=== PATIENT | male | born 1965 | race Caucasian/White ===

== ENCOUNTER 2020-02-04 15:55 | Inpatient (IN) ==
[2020-02-04] MEDS ORDERED: cefTRIAXone SODIUM 2,000 MG/70 ML BAG IV STA (16:08)
--- NOTE | 2020-02-04 16:12 | Emergency Department Note ---
Impression & Plan Meningitis, Candelario's palsy, Sixth cranial nerve palsy, Acute Lyme disease ED Provider Note NAME: HARDEEP MAHER JR AGE: 54 SEX: M : 1965 ARRIVES VIA: Walk-In INFORMANT: Patient ED PROVIDER(S): Gigi Figueredo DO CHIEF COMPLAINT: Meningitis HPI: Patient is a 54-year-old male who presents the ER referred in by neurology. Patient was seen here in the ER and had CTs as well as CT angios and MRI performed yesterday. His symptoms started about 3 weeks ago. He noticed some double vision. In the past 24 hours he had a right-sided facial droop. That is why he initially presented to the ER. Over these past 3 weeks he has been having worsening headaches. Lyme titers were positive yesterday. Only tick bite he can think of was back in October [place] He is an avid outdoorsman. He denies any chest pain and shortness of breath. No belly pain, nausea, vomiting or diarrhea. He admits to diffuse myalgias and arthralgias. Headache is currently a 0 out of 10. He had a little LP performed today and had over 200 white cells and was referred in for admission. ROS: See above HPI for pertinent positives & negatives. A total of 10 systems reviewed and were otherwise negative. PAST MEDICAL HISTORY:See Below PAST SURGICAL HISTORY:See Below FAMILY HISTORY:See Below SOCIAL HISTORY:See Below HOME MEDICATIONS:See Below ALLERGIES:See Below VITALS:See Below PHYSICAL EXAMINATION: GENERAL: Sitting up in bed, alert, well appearing, well nourished, no distress, non-toxic EYE EXAM: normal conjunctiva. Full range of motion of left eye. Right eye unable to gaze laterally. OROPHARYNX: no exudate, no erythema, lips, buccal mucosa, and tongue normal and mucous membranes are moist NECK: supple, no nuchal rigidity, no adenopathy, non-tender LUNGS: Clear to auscultation. Normal chest wall mechanics HEART: no murmurs, S1 normal and S2 normal ABDOMEN: abdomen soft, non-tender, normo-active bowel sounds, no masses, no rebound or guarding. BACK: Back is symmetrical on inspection and there is no deformity, no midline tenderness, no CVA tenderness. SKIN: no rashes and no bruising UPPER EXTREMITIES: upper extremities are grossly normal. LOWER EXTREMITIES: No pitting edema. NEURO EXAM: Normal sensorium, right-sided facial droop, unable to gaze rightward with right eye, intact, normal speech, no weakness of arms, no weakness of legs. No drift. Gross sensation intact. MEDICAL DECISION MAKING: Patient is a 54-year-old male who had extensive work-up performed yesterday including MRIs and CT angios. He was discharged and followed up with neurology today and had a lumbar puncture which showed more than 200 white cells. He was referred in for meningitis. Per neurology's note patient was given 2 g of IV Rocephin. He was updated bedside. He was discussed with the hospitalist and was admitted for likely Lyme meningitis as his Lyme titers are positive. Labs show a mild leukopenia at 3.8. No significant anemia. BMP, LFTs, bilirubin was unremarkable. Triage Nursing notes reviewed. Prior medical records reviewed Vital Signs: reviewed and remarkable for no significant abnormalities Differential diagnosis: Differential diagnosis includes etiologies such as sepsis, UTI, pneumonia, metabolic, electrolyte abnormalities, cardiac sources, intracerebral event, toxicologic, neurological, as well as others were entertained. ER treatment provided: See below Diagnostics interpreted by me: ECG: none Cardiac Monitoring: An order was placed for continuous cardiac monitoring. The monitor shows a rate of 80 with sinus rhythm. Laboratory studies: As stated above and show below. Imaging studies: See below Consultation(s): none ED COURSE: Procedures: none Critical Care: None Past Med/Surg History Medical History (Updated 02/04/20 @ 22:18 by Gigi Figueredo DO) Acute back pain with sciatica Acute Lyme disease Gout Hypercholesteremia Hypertension Surgical History (Updated 02/04/20 @ 18:33 by Christa Dan PA-C) History of colonoscopy Vasectomy planned Family History Father Diabetes Lung disease Mother Coronary heart disease Social History Smoking Status: Never smoker Hx Alcohol Use: Yes Hx Substance Use: No Preferred Language: Peruvian Communication Ability: Effective Director Of Perioperative Services Required: No Beliefs That Will Affect Care: None Current Living Situation: Family Current Living Situation Comment: Home with and daughter Other Information That Helps Us Care for You: No Feels Safe at Home: Yes Safety Concerns: Feels Safe At This Time Assistive Devices: Glasses Allergies Allergies Allergy/AdvReac Type Severity Reaction Status Date / Time No Known Allergies Allergy Verified 02/04/20 17:28 Home Meds Home Medications Medication Instructions Recorded Confirmed allopurinol 200 mg PO HS 02/03/20 02/04/20 atorvastatin 20 mg PO QPM 02/03/20 02/04/20 doxycycline hyclate 100 mg PO DAILY 02/03/20 02/04/20 fluticasone propionate 2 spray INTRANASAL QPM 02/03/20 02/04/20 montelukast 10 mg PO HS 02/03/20 02/04/20 Previous Rx's Medication Instructions Recorded gabapentin 300 mg capsule 300 mg PO BID #60 cap 02/04/20 lisinopril 5 mg tablet 5 mg PO DAILY #30 tab 02/04/20 Results & Data (ED) Vital Signs Vital Signs - 24 hr 02/04/20 15:57 02/04/20 16:00 02/04/20 16:05 Temperature 37 C Temperature Source Oral Pulse Rate 85 84 87 Pulse Rate from SpO2 Sensor Respiratory Rate 17 18 24 Blood Pressure 137/89 137/89 Blood Pressure Mean 97 105 Blood Pressure Position Sitting Pulse Oximetry 98 Oxygen Delivery Method Room Air Sepsis Recent Fever Within 48 Hours Yes Sepsis New/Unexplained Change in Mental Status No Sepsis Action Taken by Nursing No Action Required 02/04/20 16:12 02/04/20 16:30 02/04/20 16:57 Temperature Temperature Source Pulse Rate 91 H 79 Pulse Rate from SpO2 Sensor Respiratory Rate 22 23 Blood Pressure 150/82 H Blood Pressure Mean 89 Blood Pressure Position Pulse Oximetry 97 Oxygen Delivery Method Room Air Sepsis Recent Fever Within 48 Hours Sepsis New/Unexplained Change in Mental Status Sepsis Action Taken by Nursing 02/04/20 17:00 02/04/20 17:30 Temperature Temperature Source Pulse Rate 83 87 Pulse Rate from SpO2 Sensor 83 87 Respiratory Rate 16 24 Blood Pressure 140/83 124/66 Blood Pressure Mean 90 74 Blood Pressure Position Pulse Oximetry 95 95 Oxygen Delivery Method Sepsis Recent Fever Within 48 Hours Sepsis New/Unexplained Change in Mental Status Sepsis Action Taken by Nursing Laboratory Data Result diagrams: 02/04/20 16:40 02/04/20 16:40 Lab Results 02/04/20 02/04/20 Range/Units 16:40 16:40 WBC 3.80 L (4.8-10.8) K/uL RBC 4.30 L (4.7-6.1) M/uL Hgb 13.8 L (14.0-18.0) g/dL Hct 40.4 L (42-52) % MCV 94.0 (80-100) fL MCH 32.1 (25-34) pg MCHC 34.2 (32-36) g/dL RDW Std Deviation 41.9 (36.4-46.3) fL RDW Coeff of Millie 12.4 (11.5-14.5) % Plt Count 223 (130-400) K/uL MPV 10.7 H (7.4-10.4) fL Immature Gran % (Auto) 0.3 % Neut % (Auto) 44.5 % Lymph % (Auto) 43.7 % Dickenson % (Auto) 8.4 % Eos % (Auto) 2.6 % Baso % (Auto) 0.5 % Neut # (Auto) 1.69 (1.4-6.5) K/uL Lymph # (Auto) 1.66 (1.2-3.4) K/uL Dickenson # (Auto) 0.32 (0.11-0.59) K/uL Eos # (Auto) 0.10 (0-0.5) K/uL Baso # (Auto) 0.02 (0-0.2) K/uL Immature Gran # (Auto) 0.01 (0.00-0.02) K/uL Sodium 138 (136-145) mmol/L Potassium 3.7 (3.5-5.1) mmol/L Chloride 103 (98-107) mmol/L Carbon Dioxide 29 (21-32) mmol/L Anion Gap 5.0 (3-11) BUN 15 (7-18) mg/dl Creatinine 0.84 (0.6-1.4) mg/dl Est Cr Clr Drug Dosing Not Reportable Est GFR ( Amer) 115.9 Est GFR (Non-Af Amer) 100.0 BUN/Creatinine Ratio 17.6 (10-20) Glucose 124 H (70-99) mg/dl Calcium 9.6 (8.5-10.1) mg/dl Total Bilirubin 0.5 (0.2-1) mg/dl AST 12 L (15-37) U/L ALT 22 (12-78) U/L Alkaline Phosphatase 47 (45-117) U/L Total Protein 7.3 (6.4-8.2) gm/dl Albumin 3.8 (3.4-5.0) gm/dl Globulin 3.5 (2.5-4.0) gm/dl Albumin/Globulin Ratio 1.1 (0.9-2) Administered Medications Allopurinol (Allopurinol 100 Mg Tab) 200 mg PO HS DANIELLE Stop: 03/05/20 20:59 Last Admin: 02/04/20 21:27 Dose: 200 mg Documented by: [id number] Atorvastatin Calcium (Atorvastatin 20 Mg Tab) 20 mg PO QPM DANIELLE Stop: 03/05/20 20:59 Last Admin: 02/04/20 21:27 Dose: 20 mg Documented by: [id number] Fluticasone Propionate (Fluticasone Propionate Na Spr 16 Gm Btl) 2 sprays NA QPM DANIELLE Stop: 03/05/20 20:59 Last Admin: 02/04/20 21:26 Dose: 2 sprays Documented by: [id number] Gabapentin (Gabapentin 300 Mg Cap) 300 mg PO BID DANIELLE Stop: 03/05/20 20:59 Last Admin: 02/04/20 21:26 Dose: 300 mg Documented by: [id number] Ceftriaxone Sodium 2,000 mg/ (Dextrose) 50 mls @ 100 mls/hr IV Q12H [facility]; Protocol Stop: 02/14/20 18:06 Last Admin: 02/04/20 18:58 Dose: Not Given Documented by: [id number] Ampicillin Sodium 2,000 mg/ (Sodium Chloride) 100 mls @ 200 mls/hr IV Q4H DANIELLE Stop: 02/14/20 18:14 Last Infusion: 02/04/20 19:30 Dose: 0 mls/hr Documented by: [id number] Admin: 02/04/20 18:58 Dose: 200 mls/hr Documented by: [id number] Sodium Chloride (Nss 1000ml) 1,000 mls @ 75 mls/hr IV .[id number] DANIELLE Stop: 03/05/20 20:02 Last Admin: 02/04/20 21:17 Dose: 75 mls/hr Documented by: [id number] Vancomycin HCl 2,250 mg/ (Sodium Chloride) 545 mls @ 200 mls/hr IV ONE ONE Stop: 02/04/20 23:13 Last Admin: 02/04/20 21:19 Dose: 200 mls/hr Documented by: [id number] Acyclovir Sodium 680 mg/ (Dextrose) 263.6 mls @ 250 mls/hr IV Q8H DANIELLE Stop: 02/14/20 20:59 Last Admin: 02/04/20 21:19 Dose: 250 mls/hr Documented by: [id number] Montelukast Sodium (Montelukast Sodium 10 Mg Tablet) 10 mg PO HS DANIELLE Stop: 03/05/20 20:59 Last Admin: 02/04/20 21:26 Dose: 10 mg Documented by: [id number] Morphine Sulfate (Morphine Sulfate 4 Mg/Ml 1 Ml Carp\Vial) 4 mg IV Q4H PRN PRN Reason: severe pain Stop: 02/18/20 20:02 Last Admin: 02/04/20 21:00 Dose: 4 mg Documented by: [id number] Discontinued Medications Ceftriaxone Sodium (Rocephin) 2,000 mg in 70 mls @ 140 mls/hr IV NOW STA Stop: 02/04/20 16:37 Last Infusion: 02/04/20 17:37 Dose: 0 mls/hr Documented by: [id number] Admin: 02/04/20 16:58 Dose: 140 mls/hr Documented by: [id number] Miscellaneous Information (Consult Pharmacy) 1 ea N/A NOW STA Stop: 02/04/20 18:08 Last Admin: 02/04/20 19:10 Dose: 1 ea Documented by: [id number] Discharge Plan Visit Data Chief Complaint: Neuro Symptoms/Deficit Stated Complaint: SDS outpatient lumbar puncture, needs admitted ED Provider: Gigi Figueredo Discharge Problem: Meningitis, Candelario's palsy, Sixth cranial nerve palsy, Acute Lyme disease Patient Disposition: Admitted As Inpatient Discharge Instructions Interventions: ED Discharge Assessment Last Done: 02/04/20 18:59 Discharge Problem: Sixth cranial nerve palsy Qualifiers: Laterality: right Qualified Code(s): H49.21 - Sixth [abducent] nerve palsy, right eye
[2020-02-04 16:52] LABS: Basophils # (auto) 0.02 K/uL (0-0.2); Basophils % (auto) 0.5 %; Eosinophils % (auto) 2.6 %; Hematocrit (blood only) 40.4 % (42-52); Hemoglobin 13.8 g/dL (14.0-18.0); Immature Granulocytes # (auto) 0.01 K/uL (0.00-0.02); Immature Granulocytes % (auto) 0.3 %; Lymphocytes # (auto) 1.66 K/uL (1.2-3.4); Lymphocytes % (auto) 43.7 %; Mean Corpuscular Hemoglobin 32.1 pg (25-34); Mean Corpuscular Hgb Conc 34.2 g/dL (32-36); Mean Platelet Volume 10.7 fL (7.4-10.4); Monocytes # (auto) 0.32 K/uL (0.11-0.59); Monocytes % (auto) 8.4 %; Neutrophils # (auto) 1.69 K/uL (1.4-6.5); Neutrophils % (auto) 44.5 %; Platelet Count 223 K/uL (130-400); RDW Coefficient of Variation 12.4 % (11.5-14.5); RDW Standard Deviation 41.9 fL (36.4-46.3)
[2020-02-04 17:10] LABS: Alanine Aminotransferase 22 U/L (12-78); Albumin Level 3.8 gm/dl (3.4-5.0); Aspartate Aminotransferase 12 U/L (15-37); BUN Creatinine Ratio 17.6 (10-20); Blood Urea Nitrogen 15 mg/dl (7-18); Calcium 9.6 mg/dl (8.5-10.1); Carbon Dioxide 29 mmol/L (21-32); Chloride 103 mmol/L (98-107); Est GFR (African American) 115.9; Glucose 124 mg/dl (70-99); Potassium 3.7 mmol/L (3.5-5.1); Sodium 138 mmol/L (136-145)
[2020-02-04 17:13] LABS: Albumin Globulin Ratio 1.1 (0.9-2); Alkaline Phosphatase 47 U/L (45-117); Bilirubin,Total 0.5 mg/dl (0.2-1); Globulin 3.5 gm/dl (2.5-4.0); Total Protein 7.3 gm/dl (6.4-8.2)
--- NOTE | 2020-02-04 17:55 | History & Physical Report ---
Date of Service February 04, 2020 Assessment & Plan (1) Acute Lyme disease: (2) Candelario's palsy: (3) Sixth cranial nerve palsy: This is a 54-year-old male with significant past medical history of HLD, allergic rhinitis, hypertension, Gout who presents to ED secondary to referral by neurology due to abnormal lumbar puncture and acute lyme disease. Pt sx. started 3 weeks ago with bilateral diplopia. Seen and evaluated by ophthalmology. Had orbit MRI which was unremarkable. Had brain MRI which is unremarkable as well. Progressed yesterday to right-sided facial droop and diagnosed with Cnadelario's palsy. And neurologic work-up in ED yesterday was otherwise unremarkable. Outpatient Lyme titer IgM 3 out of 3 positive, IgG 2/10+, presumptive early Lyme's disease. Lumbar puncture today ordered by neurology revealed 222 to WBC, glucose 40, CSF/serum glucose ratio <0.4, protein >200 Pt does not meet SIRS/sepsis criteria per current CMS guidelines on admission. Admit to PCU Initiate broad-spectrum IV antibiotics with Rocephin 2 g every 12, vancomycin, ampicillin and acyclovir until formal CSF culture results If culture/gram stain negative pt will need rocephin 2g daily x 14 days CSF culture and Gram stain, studies pending Consult [facility]ASM[facility] and [facility] Neuro IVF APAP IV morphine as needed severe pain monitor on tele for any cardiac arrhythmia (4) Elevated blood pressure reading: Patient with elevated BP today Was seen in neurology clinic restarted him on lisinopril 5 mg daily, he has not yet started That probably the moving only and appears to be well controlled on no antihypertensive Likely elevated in setting of acute illness We will hold on initiating lisinopril -monitor BP (5) Hypercholesteremia: continue statin (6) Gout: continue allopurinol (7) DVT prophylaxis: SCD/TEDS Disposition: admit to PCU Follow up: PCP Dr. Chappell upon discharge Pt was seen and examined in collaboration with Dr. Fiore, please see addendum History of Present Illness Chief Complaint: Referred by neurology secondary to abnormal lumbar puncture. Primary Care Provider: Elle Koehler MD This is a 54-year-old male with significant past medical history of HLD, allergic rhinitis, hypertension, Gout who presents to ED secondary to referral by neurology due to abnormal lumbar puncture. Of significance patient symptoms started approximately 3 weeks ago. He developed bilateral diplopia. "I was put through the ringer and even myasthenia gravis was ruled out." He was seen and evaluated by ophthalmology who diagnosed him with a cranial nerve palsy. He was diagnosed by outpatient lab with positive lyme. His symptoms continued and yesterday he noted a right-sided facial droop when he was performing a Zoom meeting. He also had concern for tingling to right upper extremity and was seen and evaluated in ED. He underwent stroke work-up including CT head, CTA head and neck as well as MRI. MRI reviewed a few punctuate white matter lesions unchanged from prior exam likely reflecting small vessel disease or sequela from migraines. CTA head and neck were unremarkable. He was started on oral doxycycline due to concern for Lyme's disease. Case was discussed with outpatient neurology who also recommended initiation of doxycycline. He was seen in follow-up today by Dr. Guo. Lumbar puncture was performed which revealed xanthochromic clear colorless fluid with 222 WBC, elevated protein at 219.4. He was referred to ED for meningitis. He was started on 2 g IV Rocephin. Currently he complains of continued bilateral diplopia, right-sided facial droop, right eye patch in place, dull bandlike headache that is constant, neck pain that is more severe at night, and back pain. Overall decreased appetite and 5 to 10 pound weight loss over the past 3 weeks. He denies fever, chills, sweats, lightheadedness, dizziness, loss of vision, change in hearing, dysphagia, excessive drooling, chest pain, shortness of breath, cough, nausea, vomiting, abdominal pain, change in bowel or urinary habits. He has been using lidocaine patches at night, "all over my body." He denies rash or arthralgias. No known sick contacts. In ED lab work notable for WBC 3.8, H&H 13.8 and 40.4, platelet 223, BUN 15, creatinine 0.84, glucose 124. He remained hemodynamically stable. He received 2 g IV Rocephin in ED. Allergies Allergy/AdvReac Type Severity Reaction Status Date / Time No Known Allergies Allergy Verified 02/04/20 17:28 Home Medications Home Medications Medication Instructions Recorded Confirmed Type allopurinol 200 mg PO HS 02/03/20 02/04/20 History atorvastatin 20 mg PO QPM 02/03/20 02/04/20 History doxycycline hyclate 100 mg PO DAILY 02/03/20 02/04/20 History fluticasone propionate 2 spray INTRANASAL QPM 02/03/20 02/04/20 History montelukast 10 mg PO HS 02/03/20 02/04/20 History gabapentin 300 mg capsule 300 mg PO BID #60 cap 02/04/20 02/04/20 Rx lisinopril 5 mg tablet 5 mg PO DAILY #30 tab 02/04/20 02/04/20 Rx Past Med/Surg History Medical History (Updated 02/04/20 @ 18:41 by Christa Dan PA-C) Acute back pain with sciatica Acute Lyme disease Gout Hypercholesteremia Hypertension Surgical History (Updated 02/04/20 @ 18:33 by Christa Dan PA-C) History of colonoscopy Vasectomy planned Family History Father Diabetes Lung disease Mother Coronary heart disease Social History Smoking Status: Never smoker Hx Alcohol Use: Yes Hx Substance Use: No Preferred Language: Austrian Communication Ability: Effective Beliefs That Will Affect Care: None Current Living Situation: Spouse Feels Safe at Home: Yes Assistive Devices: None Review of Systems Review of Systems: All systems reviewed & are unremarkable except as noted in HPI & below Physical Exam Physical Exam: Constitutional: WD/WN, M, vitals as above, NAD, sitting up in bed, pleasant, conversing easily Head: Normocephalic, Atraumatic Eyes: PERRL, conjunctivae normal, anicteric sclerae ENMT: external ear and nose normal, oropharynx normal Neck: trachea midline, no thyromegaly normal visual inspection Respiratory: normal respiratory effort, lungs clear to auscultation, no wheeze, rales, rhonchi. Normal insp/exp effort, no accessory muscle use Cardiovascular: RRR, no murmur, no edema Vessels: no JVD or carotid bruit Chest: normal inspection of chest Abdomen: normal bowel sounds, soft, nontender, no hepatosplenomegaly Musculoskeletal: no cyanosis or clubbing, extremities motor strength 5/5 Skin: no rashes, warm and dry normal turgor Neurologic: PERRL, EOMI, accommodation nl, R facial droop, Cran nerve 6 palsy, no dysarthria, moves all extremities, Psychiatric: A+Ox3, euthymic affect Lymphatic: no cervical or axillary lymphadenopathy : deferred Results & Data Results & Data ([facility]) Vital Signs (Past 12 Hours) Vital Signs Temp Pulse Resp BP Pulse Ox 02/04/20 17:30 87 24 124/66 95 02/04/20 17:00 83 16 140/83 95 02/04/20 16:57 79 23 150/82 H 02/04/20 16:30 91 H 22 02/04/20 16:12 97 02/04/20 16:05 87 24 02/04/20 16:00 37 C 84 18 137/89 98 02/04/20 15:57 85 17 137/89 Laboratory Results Short CBC 02/04/20 Range/Units 16:40 WBC 3.80 L (4.8-10.8) K/uL Hgb 13.8 L (14.0-18.0) g/dL Hct 40.4 L (42-52) % Plt Count 223 (130-400) K/uL BMP 02/04/20 16:40 Sodium 138 Potassium 3.7 Chloride 103 Carbon Dioxide 29 BUN 15 Creatinine 0.84 Glucose 124 H Calcium 9.6 Liver Function 02/04/20 Range/Units 16:40 Total Bilirubin 0.5 (0.2-1) mg/dl AST 12 L (15-37) U/L ALT 22 (12-78) U/L Alkaline Phosphatase 47 (45-117) U/L Albumin 3.8 (3.4-5.0) gm/dl Diagnostic Findings Lumbar Puncture: IMPRESSION: Successful fluoroscopic guided lumbar puncture with removal of 10 cc of clear, colorless cerebral spinal fluid. No immediate complications. Opening pressure was 20 cm of H2O. Brain MRI: IMPRESSION: 1. No acute intracranial findings. No change in appearance of the brain. 2. A few punctate white matter T2 hyperintense foci which are unchanged since prior exam. These may reflect minimal small vessel disease or sequela of migraine headaches. NECK/HEAD CTA: IMPRESSION:Unremarkable CTA of the head and neck without aneurysm, dissection, high-grade stenosis or proximal branch occlusion. Head cT: IMPRESSION: No acute intracranial findings. Orbit MRI: IMPRESSION: 1. Unremarkable MRI of the orbits. 2. No abnormal enhancement. Medications Administered Discontinued Medications Ceftriaxone Sodium (Rocephin) 2,000 mg in 70 mls @ 140 mls/hr IV NOW STA Stop: 02/04/20 16:37 Last Infusion: 02/04/20 17:37 Dose: 0 mls/hr Documented by: [id number] Admin: 02/04/20 16:58 Dose: 140 mls/hr Documented by: [id number] Code Status & VTE Plan Code Status Full Code VTE Prophylaxis Plan VTE Prophylaxis will be ordered: Yes Supervising Physician Co-Signing Physician Notes I saw this patient with the physician events and promotions assistant, I participated in the history, physical, review of systems, and physical exam. I reviewed the medications with the patient and the physician events and promotions assistant and helped reconcile the medications. I helped take a detailed family and social history as well. I formulated the assessment and plan personally with the physician events and promotions assistant and went over it with the patient. Physical Exam Gen-AAO x 3, NAD, Afebrile, patch over R Eye Head-NCAT, EOMI, PERRLA, Anicteric Sclera, No Posterior Pharyngeal Erythema Neck-Supple, No JVD, No Thyromegaly, No Masses, No LAD, No Bruits Lungs-Clear to Auscultation Bilaterally, No Rales, No Rhonchi, No Wheezing, No Crepitus Chest-No S4, +S1, +S2, No S3, No Murmurs, No Rubs, No Gallops, No Ectopy Abdomen-Soft, Bowel Sounds Present, Non Tender, Non Distended, No Hepatomegaly, No Splenomegaly, No Palpable Masses, No Rebound, No Rigidity, No Guarding Musculoskeletal-Full Range of Motion Bilaterally, No CVAT Extremities-No Cyanosis, No Clubbing, No Edema Nuero-6th nerve palsy R, Motor WNL, DTRs WNL, Strength WNL, R Facial droop Psych-Normal Mood (1) Sixth cranial nerve palsy Laterality: right Qualified Code(s): H49.21 - Sixth [abducent] nerve palsy, right eye
[2020-02-04] MEDS ORDERED: CONSULT PHARMACY STA (18:07)
[2020-02-04] MEDS ORDERED: VANCOMYCIN CONSULT ACTIVE PRN (18:07)
[2020-02-04] MEDS: cefTRIAXone SODIUM 2,000 MG in DEXTROSE 5% 50 ML IV SCH (18:58)
[2020-02-04] MEDS: AMPICILLIN 2,000 MG in SODIUM CHLOR 0.9% AD-VAN 100 ML IV SCH ×2 (18:58→23:31)
[2020-02-04] MEDS ORDERED: ALUMINUM/MAGNESIUM SUSP 30 ML UDC PO PRN (20:03)
[2020-02-04] MEDS ORDERED: ONDANSETRON INJ 2 MG/ML 2 ML VIAL IV PRN (20:03)
[2020-02-04] MEDS ORDERED: ACYCLOVIR CONSULT ACTIVE PRN (20:18)
[2020-02-04] MEDS ORDERED: VANCOMYCIN HCL 2,250 MG in SODIUM CHLORIDE 0.9% 500 ML IV ONE (20:30)
[2020-02-04] MEDS: MoRPHine SULFATE 4 MG/ML 1 ML CARP\\VIAL IV PRN (21:00)
[2020-02-04] MEDS: SODIUM CHLORIDE 0.9% 1000ML 1,000 ML IV SCH (21:17)
[2020-02-04] MEDS: ACYCLOVIR SOD IV SCH (21:19)
[2020-02-04] MEDS: DEXTROSE 5% IV SCH (21:19)
[2020-02-04] MEDS: MONTELUKAST SODIUM 10 MG TABLET PO SCH (21:26)
[2020-02-04] MEDS: FLUTICASONE PROPIONATE NA SPR 16 GM BTL SCH (21:26)
[2020-02-04] MEDS: GABAPENTIN 300 MG CAP PO SCH (21:26)
[2020-02-04] MEDS: allopurinoL 100 MG TAB PO SCH (21:27)
[2020-02-04] MEDS: ATORVASTATIN 20 MG TAB PO SCH (21:27)
--- NOTE | 2020-02-04 21:58 | Pharmacy Report ---
Pharmacy Abx Dose Short Note - Date of Service February 04, 2020 - Assessment & Plan Assessment 54 year old M receiving Vancomycin, acyclovir, rocephin and ampicillin for treatment of lyme meningitis. Day # 1 of antimicrobial therapy. * Renal function at baseline. * CSF culture pending Plan Vancomycin for treatment of meningitis Vancomycin IV * Patient meets criteria for vancomycin AUC dosing nomogram * AUC/SARAH is the preferred PK/PD target for vancomycin * Target AUC/SARAH = 400-600 * AUC guided dosing is effective and associated with decreased risk of nephrotoxicity * Estimated PK Parameters: Vd 0.7 L/kg, Jaswinder 0.074hr-1, t1/2 9 hr * Loading dose: 2250 mg (25 mg/kg) * Maintenance dose: 1000 mg IV (11 mg/kg) every 8 hours * Goal trough level for meningitis : ~ 20 mcg/mL * Trough/Random level ordered for 02/06/20 @0530 Acyclovir * Dosing 10mg/kg based on IBW * 680mg IV q8h Rocephin 2gm q12h Ampicillin 2gm q4h Pharmacy will continue to follow and will adjust dose/frequency as necessary. Thank you.
[2020-02-05] MEDS: AMPICILLIN 2,000 MG in SODIUM CHLOR 0.9% AD-VAN 100 ML IV SCH ×7 (00:44→23:47)
[2020-02-05] MEDS: MoRPHine SULFATE 4 MG/ML 1 ML CARP\\VIAL IV PRN ×4 (00:48→20:00)
[2020-02-05] MEDS: ACETAMINOPHEN 325 MG TAB PO PRN ×3 (02:45→14:46)
[2020-02-05] MEDS: ACYCLOVIR SOD IV SCH (04:33)
[2020-02-05] MEDS: DEXTROSE 5% IV SCH (04:33)
[2020-02-05] MEDS: cefTRIAXone SODIUM 2,000 MG in DEXTROSE 5% 50 ML IV SCH ×2 (04:42→17:25)
[2020-02-05] MEDS: VANCOMYCIN HCL 1,000 MG in SODIUM CHLORIDE 0.9% 250 ML IV SCH ×3 (05:24→22:11)
[2020-02-05 06:41] LABS: Basophils # (auto) 0.03 K/uL (0-0.2); Basophils % (auto) 0.7 %; Eosinophils # (auto) 0.16 K/uL (0-0.5); Hemoglobin 12.7 g/dL (14.0-18.0); Immature Granulocytes # (auto) 0.02 K/uL (0.00-0.02); Immature Granulocytes % (auto) 0.5 %; Lymphocytes # (auto) 1.69 K/uL (1.2-3.4); Lymphocytes % (auto) 41.8 %; Mean Corpuscular Hemoglobin 31.8 pg (25-34); Mean Corpuscular Hgb Conc 33.4 g/dL (32-36); Mean Corpuscular Volume 95.2 fL (80-100); Mean Platelet Volume 10.7 fL (7.4-10.4); Monocytes # (auto) 0.52 K/uL (0.11-0.59); Monocytes % (auto) 12.9 %; Neutrophils # (auto) 1.62 K/uL (1.4-6.5); Neutrophils % (auto) 40.1 %; Platelet Count 214 K/uL (130-400); RDW Coefficient of Variation 12.4 % (11.5-14.5); RDW Standard Deviation 43.2 fL (36.4-46.3); Red Blood Count 3.99 M/uL (4.7-6.1); White Blood Count 4.04 K/uL (4.8-10.8)
[2020-02-05 07:03] LABS: Albumin Level 3.2 gm/dl (3.4-5.0); BUN Creatinine Ratio 16.9 (10-20); Creatinine Clr Calc Pharmacy 108.5 ml/min; Est GFR (African American) 115.3; Est GFR (Non-African American) 99.5; Magnesium 1.9 mg/dl (1.8-2.4); Potassium 3.6 mmol/L (3.5-5.1)
[2020-02-05 07:06] LABS: Bilirubin,Total 0.3 mg/dl (0.2-1); Globulin 3.3 gm/dl (2.5-4.0); Total Protein 6.5 gm/dl (6.4-8.2)
[2020-02-05] MEDS ORDERED: INFLUENZA VIRUS QUAD VACCINE 0.5 ML SYR IM ONE (09:00)
[2020-02-05] MEDS ORDERED: INFLUENZA ADMINISTRATION CHARGE ONE (09:00)
[2020-02-05] MEDS: GABAPENTIN 300 MG CAP PO SCH ×2 (09:05→19:59)
--- NOTE | 2020-02-05 09:23 | Neurology Consultation ---
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 Guo. I agree with treatment with Rocephin. Would plan for 2 g/day, 14 days total. Patient will need a PICC line placed to continue treatment at home. Follow-up with pending infectious disease consultation. Would discontinue the other antimicrobials depending on CSF culture results. The acyclovir can be discontinued. Continue with gabapentin to address acute radicular/neuropathic pain. Morphine IV is appropriate while patient is in the hospital. Monitor patient's complaint of testicular pain. I am uncertain if this symptom is due to radiculitis or Lyme related orchitis. Monitor for Lyme related cardiac conduction block. Prognosis favorable with antimicrobial therapy. Plan for neurology follow-up with Dr. Guo. History of Present Illness Reason for Consultation: Lyme disease with cranial neuropathies Requesting Physician: Christa Dan PA-C Attending Physician: Ximena Garcia MD History of Present Illness The patient is a 54-year-old male with a chief complaint of double vision and facial weakness. He first noticed horizontal diplopia about 3 weeks ago and was evaluated by his diet aide, Dr. Small who diagnosed a right 6th nerve palsy, myasthenia gravis was excluded. The horizontal diplopia is worse at a distance, and improves up close. The symptom has been persistent, he has been wearing an eye patch. He underwent MRI of the brain and orbits on January 24, 2020 at [facility]. These imaging studies were unremarkable. He presented to the emergency department on February 03, 2020 complaining of right facial weakness potentially consistent with a facial nerve palsy. He did have some ability to furrow the brow and was able to close the right eye. He underwent additional neuro imaging at that time including CT angiography of the head and neck and repeat MRI of the brain. These tests were also unremarkable and described in further detail below. An outpatient Lyme Western blot came back positive on January 27, 2020. He has been taking doxycycline. He was given 2 g of Rocephin during his assessment in the emergency department. I discussed his case with Dr. Cornell at that time. He was referred to our neurology clinic the following day for additional evaluation. The patient was seen by Dr. Guo on February 04, 2020 and was also complaining of bilateral hip pain, and right shoulder pain. He was referred for an urgent lumbar puncture which was completed that day and revealed a significantly elevated CSF WBC and protein. 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 He is currently receiving broad- spectrum antimicrobial therapy including ceftriaxone, ampicillin, vancomycin, and acyclovir. He is also receiving gabapentin and morphine for acute radicular/neuropathic pain. This morning, the patient continues to complain of horizontal diplopia, worse at a distance, and significant right facial weakness, affecting the upper and lower aspects of the face. He is able to close the right eyelid although eyelid closure is modestly weak. He also complains of a moderate headache with some associated neck stiffness and diffuse bodily aches and pains, especially the hips and right shoulder region. He complains of some sciatica type symptoms as well, from the hips down both legs posteriorly. He also complains of mild testicular pain which seems new, without associated swelling. He admits that his sleeping has been very poor due to pain although improved since coming to the hospital and receiving additional treatment. he does admit that he spends a fair amount of time outdoors and on some wooded property where he typically walks his dog. Yet, he is unaware of any recent tick bite or bull's-eye rash. Allergies Allergy/AdvReac Type Severity Reaction Status Date / Time No Known Allergies Allergy Verified 02/04/20 17:28 Home Medications Home Medications Medication Instructions Recorded Confirmed Type allopurinol 200 mg PO HS 02/03/20 02/04/20 History atorvastatin 20 mg PO QPM 02/03/20 02/04/20 History doxycycline hyclate 100 mg PO DAILY 02/03/20 02/04/20 History fluticasone propionate 2 spray INTRANASAL QPM 02/03/20 02/04/20 History montelukast 10 mg PO HS 02/03/20 02/04/20 History gabapentin 300 mg capsule 300 mg PO BID #60 cap 02/04/20 02/04/20 Rx lisinopril 5 mg tablet 5 mg PO DAILY #30 tab 02/04/20 02/04/20 Rx Patient History Medical History Acute back pain with sciatica Acute Lyme disease Gout Hypercholesteremia Hypertension Surgical History History of colonoscopy Vasectomy planned Family History Father Diabetes Lung disease Mother Coronary heart disease Social History Smoking Status: Never smoker Hx Alcohol Use: Yes Hx Substance Use: No Preferred Language: Kyrgyz Communication Ability: Effective Field Service Rep Required: No Beliefs That Will Affect Care: None Current Living Situation: Family Current Living Situation Comment: Home with and daughter Other Information That Helps Us Care for You: No Feels Safe at Home: Yes Safety Concerns: Feels Safe At This Time Assistive Devices: Glasses Review of Systems Constitutional: + body aches and + fatigue; no fever and no chills Eyes: as per Subjective / HPI and + diplopia; no blind spots and no eye pain Ear, Nose, Mouth, Throat: no ear pain and no hearing loss Respiratory: no cough and no dyspnea Cardiovascular: no chest pain and no palpitations Gastrointestinal: no nausea and no vomiting Genitourinary: + as per Subjective / HPI and + genital pain Musculoskeletal: as per Subjective / HPI, + back pain, + joint pain and + myalgia Integumentary: no rash and no lesions Neurologic: as per Subjective / HPI, + paresthesia, + radiating pain and + headache(s); no localized weakness, no lack of coordination, no tremor(s), no abnormal movements, no seizure-like activity, no syncope, no abnormal speech, no confusion and no memory loss Psychiatric: no depression and no anxiety Hematologic / Lymphatic: no easy bleeding and no easy bruising Exam (Neuro) Constitutional: well developed and well nourished; no acute distress Eyes: normal visual ballard by confrontation, PERRL, normal accommodation and + EOM movement deficit (Right eye is medially deviated); + EOM not intact, no fundoscopic abnormality, no nystagmus and no papilledema Cardiovascular: Vessels: normal carotid upstroke; no carotid bruit Neurologic: Oriented to:: Person, Place and Time Cortical Function: Dres sing Apraxia Memory: Short Term Intact and Remote Intact Attention: Span Intact and Concentration Intact Language: Naming Objects and Repeating Phrases Speech Fluency: negative Dysarthria Speech Aphasia: negative Apha nicholas Fund of Knowledge: Current Events, Past History and Vocabulary Cranial Nerves: Normal II (Visual ballard full to confrontation, visual acuity normal), V (Facial sensation intact), VII (There is no facial droop or weakness), VIII (Hearing intact), IX, X (Palate elevates to midline), XI (Shoulder shrug intact) and XII (Tongue protrudes to midline); Abnorm III, IV, (Pupils equal round reactive to light and accommodation, right eye is medially deviated, does not abduct well. Patient is able to close the right eyelid although eyelid closure is mildly weak.) Motor Strength: Normal Lower Extremities and Normal Upper Extremities; negative Pronator Drift Motor Tone: Normal Lower Extremities and Normal Upper Extremities Muscle Bulk/Involuntary Movements: No Involuntary Movements; negative Muscle Atrophy Sensation: Light Touch Intact, Pain/Temperature Intact, Vibration Intact and Proprioception Intact Coordination: Normal; negative Limited Balance, Dysdiadochokinesia, Finger-Nose Abnormal and Heel-Vogt Abnormal Deep Tendon Reflexes: Rt Triceps: 2+, Lt Triceps: 2+, Rt Biceps: 2+, Lt Biceps: 2+, Rt Brachioradialis: 2+, Lt Brachioradialis: 2+, Rt Patellar: 2+, Lt Patellar: 2+, Rt Ankle: 2+ and Lt Ankle: 2+ Special Tests: negative Babinski Present Gait: Normal Station and Gait Results & Data ([facility]) Vital Signs (Past 12 Hours) Vital Signs Temp Pulse Pulse Resp BP Pulse Ox 02/05/20 07:13 36.7 C 70 16 127/91 98 02/04/20 23:49 36.6 C 79 14 148/86 H 97 02/04/20 21:09 82 16 97 Laboratory Results WBC 4.04, hemoglobin 12.7, hematocrit 38.0, platelet count 214, sodium 137, potassium 3.6, BUN 14, creatinine 0.85, glucose 102, calcium 9.0, magnesium 1.9, AST 10, ALT 18 CSF analysis: Clear, colorless, xanthochromic, CSF WBC 222, RBC 7, glucose 40, protein 219.4, meningoencephalitis PCR panel negative Outpatient Lyme Western blot results from January 27, 2020 revealed 2 positive IgG bands and 3 positive IgM bands Diagnostic Findings Noncontrast brain MRI completed February 03, 2020 generally unremarkable, revealing only a few punctate T2/flair hyperintensities likely related to minimal small vessel disease and unchanged from a previous contrast-enhanced brain MRI done January 24, 2020. This contrast enhanced MRI was generally unremarkable as well and without evidence of abnormal postcontrast enhancement at that time. MRI of the orbits from January 24, [address] angiography of the head and neck and CT of the head completed February 03, 2020 were normal. I reviewed the images as well as the radiologist interpretation of these tests. He does have a prominent retrocerebellar arachnoid cyst that is not clinically significant. The lumbar puncture completed on February 04, 2020 revealed an opening pressure of 20 cm of H2O. Electrocardiogram completed February 03, 2020 revealed a normal sinus rhythm, 92 bpm. Coding Level of Care Code 09488 Office/OBS Consult Lvl 5 Diagnoses Acute Lyme disease A69.20 Sixth cranial nerve palsy H49.21 Laterality: right Candelario's palsy G51.0 Acute postinfective radiculoneuropathy G61.0 (1) Sixth cranial nerve palsy Laterality: right Qualified Code(s): H49.21 - Sixth [abducent] nerve palsy, right eye
--- NOTE | 2020-02-05 10:14 | Electrocardiogram Report ---
Test Reason : Blood Pressure : / mmHG Vent. Rate : 071 BPM Atrial Rate : 071 BPM P-R Int : 184 ms QRS Dur : 090 ms QT Int : 368 ms P-R-T Axes : 076 088 074 degrees QTc Int : 399 ms Normal sinus rhythm Normal ECG When compared with ECG of 03-FEB-2020 11:44, No significant change was found Confirmed by Randal Odell ([id number]) on 02/05/2020 10:13:50 AM Referred By: REFERRED SELF Confirmed By:Randal Odell
[2020-02-05] MEDS: SODIUM CHLORIDE 0.9% 1000ML 1,000 ML IV SCH ×2 (10:37→20:08)
[2020-02-05] MEDS: MAGNESIUM HYDROXIDE SUSP 30 ML UDC PO PRN (10:49)
--- NOTE | 2020-02-05 15:35 | Hospitalist Progress Note ---
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 History of right 6th nerve palsy for about 3 weeks duration and right facial palsy as of yesterday 02/04/2020 Outpatient Lyme titer for Western blot IgM is positive 3 out of 3 and IgG 2 out of 10 Lumbar puncture on 02/04/2020 ordered by neurology revealed 222 to WBC, glucose 40, CSF/serum glucose ratio <0.4, protein >200 Has been started on intravenous ceftriaxone including intravenous ampicillin and vancomycin until CSF culture and sensitivity is back Appreciate neurology input and recommendation Will get ID recommendation (2) Candelario's palsy: (3) Sixth cranial nerve palsy: This is a 54-year-old male with significant past medical history of HLD, allergic rhinitis, hypertension, Gout who presents to ED secondary to referral by neurology due to abnormal lumbar puncture and acute lyme disease. Pt sx. started 3 weeks ago with bilateral diplopia. Seen and evaluated by ophthalmology. Had orbit MRI which was unremarkable. Had brain MRI which is unremarkable as well. Progressed yesterday to right-sided facial droop and diagnosed with Candelario's palsy. And neurologic work-up in ED yesterday was otherwise unremarkable. Outpatient Lyme titer IgM 3 out of 3 positive, IgG 2/10+, presumptive early Lyme's disease. Lumbar puncture today ordered by neurology revealed 222 to WBC, glucose 40, CSF/serum glucose ratio <0.4, protein >200 Pt does not meet SIRS/sepsis criteria per current CMS guidelines on admission. (4) Elevated blood pressure reading: Patient with elevated BP today Was seen in neurology clinic restarted him on lisinopril 5 mg daily, he has not yet started That probably the moving only and appears to be well controlled on no antihypertensive Likely elevated in setting of acute illness We will hold on initiating lisinopril -monitor BP (5) Hypercholesteremia: continue statin (6) Gout: continue allopurinol (7) DVT prophylaxis: SCD/TEDS Disposition: admit to PCU Follow up: PCP Dr. Chappell upon discharge Discussed with the in detail Admission and Anticipated Discharge Date Admission Date: February 04, 2020 Subjective 02/05/2020 The patient was seen and examined in medical floor He has been complaining of some back pain , headache and right groin pain Denies any other neurological symptoms Denies any fever and/or chills Review of Systems Review of Systems: All systems reviewed and are unremarkable except as noted below Eyes: + diplopia Has right 6th nerve palsy. Neurologic: Right Candelario's palsy Physical Exam Physical Exam: Lying in bed comfortably Constitutional: well developed, well nourished and + ill appearing; no acute distress Eyes: Right eye is covered ENMT: external ear and nose normal, oropharynx normal Neck: trachea midline, no thyromegaly Respiratory: + respiratory distress; no labored breathing Auscultation: lungs clear to auscultation bilaterally Cardiovascular: Rate/Rhythm: regular rate and regular rhythm Heart Sounds: no murmur Gastrointestinal (Abdomen): Inspection/Auscultation: abdomen normal to inspection; abdomen not distended Percussion/Palpation: abdomen soft Musculoskeletal: No acute arthritis in any joint Neurologic: moves all extremities; no focal motor deficits Speech / Cognition: normal speech Motor/Sensory: no tremor Has right 6th nerve palsy and right-sided Candelario's palsy. Psychiatric: A+Ox3, euthymic affect Lymphatic: no cervical or axillary lymphadenopathy Results & Data Results & Data ([facility]) Vital Signs (Past 12 Hours) Vital Signs Temp Pulse Resp BP BP Pulse Ox 02/05/20 14:34 36.7 C 78 16 150/84 H 98 02/05/20 07:13 36.7 C 70 16 127/91 98 Laboratory Results Short CBC 02/04/20 02/05/20 Range/Units 16:40 06:14 WBC 3.80 L 4.04 L (4.8-10.8) K/uL Hgb 13.8 L 12.7 L (14.0-18.0) g/dL Hct 40.4 L 38.0 L (42-52) % Plt Count 223 214 (130-400) K/uL BMP 02/04/20 02/05/20 16:40 06:14 Sodium 138 137 Potassium 3.7 3.6 Chloride 103 102 Carbon Dioxide 29 32 BUN 15 14 Creatinine 0.84 0.85 Glucose 124 H 102 H Calcium 9.6 9.0 Liver Function 02/04/20 02/05/20 Range/Units 16:40 06:14 Total Bilirubin 0.5 0.3 (0.2-1) mg/dl AST 12 L 10 L (15-37) U/L ALT 22 18 (12-78) U/L Alkaline Phosphatase 47 40 L (45-117) U/L Albumin 3.8 3.2 L (3.4-5.0) gm/dl Medications Administered Current Inpatient Medications Acetaminophen (Acetaminophen 325 Mg Tab) 650 mg PO Q4H PRN PRN Reason: Pain or Fever Stop: 03/05/20 20:02 Last Admin: 02/05/20 14:46 Dose: 650 mg Documented by: Al Hydrox/Mg Hydrox/Simethicone (Aluminum/Magnesium Susp 30 Ml Udc) 15 ml PO Q4H PRN PRN Reason: Dyspepsia Stop: 03/05/20 20:02 Allopurinol (Allopurinol 100 Mg Tab) 200 mg PO HS DANIELLE Stop: 03/05/20 20:59 Last Admin: 02/04/20 21:27 Dose: 200 mg Documented by: Atorvastatin Calcium (Atorvastatin 20 Mg Tab) 20 mg PO QPM DANIELLE Stop: 03/05/20 20:59 Last Admin: 02/04/20 21:27 Dose: 20 mg Documented by: Fluticasone Propionate (Fluticasone Propionate Na Spr 16 Gm Btl) 2 sprays NA QPM DANIELLE Stop: 03/05/20 20:59 Last Admin: 02/04/20 21:26 Dose: 2 sprays Documented by: Gabapentin (Gabapentin 300 Mg Cap) 300 mg PO BID DANIELLE Stop: 03/05/20 20:59 Last Admin: 02/05/20 09:05 Dose: 300 mg Documented by: Ceftriaxone Sodium 2,000 mg/ (Dextrose) 50 mls @ 100 mls/hr IV Q12H DANIELLE; Protocol Stop: 02/14/20 18:06 Last Infusion: 02/05/20 05:50 Dose: Infused Documented by: Ampicillin Sodium 2,000 mg/ (Sodium Chloride) 100 mls @ 200 mls/hr IV Q4H DANIELLE Stop: 02/14/20 18:14 Last Infusion: 02/05/20 11:14 Dose: Infused Documented by: Sodium Chloride (Nss 1000ml) 1,000 mls @ 75 mls/hr IV .[id number] [facility] Stop: 03/05/20 20:02 Last Infusion: 02/05/20 14:52 Dose: 0 mls/hr Documented by: Vancomycin HCl 1,000 mg/ (Sodium Chloride) 270 mls @ 200 mls/hr IV Q8H DANIELLE Stop: 02/15/20 05:59 Last Admin: 02/05/20 13:44 Dose: 200 mls/hr Documented by: Magnesium Hydroxide (Magnesium Hydroxide Susp 30 Ml Udc) 30 ml PO Q12H PRN PRN Reason: Constipation Stop: 03/05/20 20:02 Last Admin: 02/05/20 10:49 Dose: 30 ml Documented by: Miscellaneous Information (Vancomycin Consult Active) 1 ea N/A UD PRN PRN Reason: Consult Stop: 03/05/20 18:06 Montelukast Sodium (Montelukast Sodium 10 Mg Tablet) 10 mg PO HS DANIELLE Stop: 03/05/20 20:59 Last Admin: 02/04/20 21:26 Dose: 10 mg Documented by: Morphine Sulfate (Morphine Sulfate 4 Mg/Ml 1 Ml Carp\Vial) 4 mg IV Q4H PRN PRN Reason: severe pain Stop: 02/18/20 20:02 Last Admin: 02/05/20 05:17 Dose: 4 mg Documented by: Ondansetron HCl (Ondansetron Inj 2 Mg/Ml 2 Ml Vial) 4 mg IV Q6H PRN PRN Reason: Nausea Stop: 03/05/20 20:02 (1) Sixth cranial nerve palsy Laterality: right Qualified Code(s): H49.21 - Sixth [abducent] nerve palsy, right eye
[2020-02-05] MEDS: DOCUSATE SODIUM 100 MG CAP PO SCH (19:59)
[2020-02-05] MEDS: allopurinoL 100 MG TAB PO SCH (19:59)
[2020-02-05] MEDS: FLUTICASONE PROPIONATE NA SPR 16 GM BTL SCH (19:59)
[2020-02-05] MEDS: MONTELUKAST SODIUM 10 MG TABLET PO SCH (19:59)
[2020-02-05] MEDS: ATORVASTATIN 20 MG TAB PO SCH (19:59)
[2020-02-05] MEDS: SENNA 8.6 MG TAB PO SCH (19:59)
[2020-02-06] MEDS: MoRPHine SULFATE 4 MG/ML 1 ML CARP\\VIAL IV PRN ×4 (00:57→23:27)
[2020-02-06] MEDS: AMPICILLIN 2,000 MG in SODIUM CHLOR 0.9% AD-VAN 100 ML IV SCH ×6 (02:48→22:16)
[2020-02-06] MEDS: cefTRIAXone SODIUM 2,000 MG in DEXTROSE 5% 50 ML IV SCH ×2 (04:34→16:12)
[2020-02-06] MEDS ORDERED: VANCOMYCIN TROUGH ONE (05:30)
[2020-02-06] MEDS: VANCOMYCIN HCL 1,000 MG in SODIUM CHLORIDE 0.9% 250 ML IV SCH (05:32)
[2020-02-06 05:33] LABS: Basophils # (auto) 0.02 K/uL (0-0.2); Basophils % (auto) 0.4 %; Eosinophils # (auto) 0.21 K/uL (0-0.5); Eosinophils % (auto) 4.7 %; Hematocrit (blood only) 39.6 % (42-52); Immature Granulocytes # (auto) 0.02 K/uL (0.00-0.02); Immature Granulocytes % (auto) 0.4 %; Lymphocytes # (auto) 1.68 K/uL (1.2-3.4); Lymphocytes % (auto) 37.3 %; Mean Corpuscular Hemoglobin 31.4 pg (25-34); Mean Corpuscular Hgb Conc 32.8 g/dL (32-36); Mean Corpuscular Volume 95.7 fL (80-100); Mean Platelet Volume 10.7 fL (7.4-10.4); Monocytes # (auto) 0.55 K/uL (0.11-0.59); Monocytes % (auto) 12.2 %; Neutrophils # (auto) 2.02 K/uL (1.4-6.5); Platelet Count 207 K/uL (130-400); RDW Coefficient of Variation 12.5 % (11.5-14.5); RDW Standard Deviation 43.3 fL (36.4-46.3); Red Blood Count 4.14 M/uL (4.7-6.1)
[2020-02-06 06:00] LABS: Albumin Level 3.3 gm/dl (3.4-5.0); BUN Creatinine Ratio 14.9 (10-20); Calcium 9.1 mg/dl (8.5-10.1); Creatinine Clr Calc Pharmacy 111.1 ml/min; Est GFR (African American) 116.4; Est GFR (Non-African American) 100.5; Magnesium 2.5 mg/dl (1.8-2.4); Potassium 4.4 mmol/L (3.5-5.1)
[2020-02-06 06:02] LABS: Bilirubin,Total 0.3 mg/dl (0.2-1); Globulin 3.3 gm/dl (2.5-4.0); Total Protein 6.6 gm/dl (6.4-8.2)
[2020-02-06] MEDS: ACETAMINOPHEN 325 MG TAB PO PRN (07:49)
[2020-02-06] MEDS: DOCUSATE SODIUM 100 MG CAP PO SCH ×2 (09:26→20:46)
[2020-02-06] MEDS: GABAPENTIN 300 MG CAP PO SCH ×2 (09:26→20:46)
--- NOTE | 2020-02-06 10:49 | Electrocardiogram Report ---
Test Reason : Blood Pressure : / mmHG Vent. Rate : 072 BPM Atrial Rate : 072 BPM P-R Int : 176 ms QRS Dur : 086 ms QT Int : 362 ms P-R-T Axes : 073 083 071 degrees QTc Int : 396 ms Normal sinus rhythm Normal ECG When compared with ECG of 05-FEB-2020 06:25, No significant change was found Confirmed by Shen Snyder ([id number]) on 02/06/2020 10:49:23 AM Referred By: REFERRED SELF Confirmed By:Shen Snyder
--- NOTE | 2020-02-06 11:24 | CT Scan Report ---
CT SCAN OF THE ABDOMEN AND PELVIS WITHOUT IV CONTRAST CLINICAL HISTORY: Right groin pain. COMPARISON STUDY: No priors. TECHNIQUE: CT scan of the abdomen and pelvis is performed from the lung bases to the proximal femora. Images are reviewed in the axial, sagittal, and coronal planes. IV contrast was not administered for this examination. A dose lowering technique was utilized adhering to the principles of ALARA. CT DOSE: 440.97 mGy.cm FINDINGS: Lung bases: The heart is normal in size and without pericardial effusion. The lung bases are clear no ting bibasilar atelectasis. Liver: The unenhanced liver is normal in size, contour, and attenuation. There is no intrahepatic filippo iary ductal dilatation. Gallbladder: Unremarkable. Spleen: Normal in size and attenuation. Pancreas: Unremarkable. Adrenal glands: Unremarkable. Kidneys: The unenhanced kidneys are normal in size and without hydronephrosis. There are no renal harry culi identified. There is no evidence of contour deforming renal mass lesion. Abdominal vasculature: The abdominal aorta is normal in course and caliber noting mild atheroscleroti c calcification. Bowel: There are scattered colonic diverticula without CT evidence of acute diverticulitis. No bowel obstruction is seen. There is moderate colonic fecal retention. The appendix is well-visualized and normal. Peritoneum: There is no intraperitoneal free air or abdominal ascites. There is a small fat-containin g umbilical hernia. Lymphadenopathy: None. Pelvic viscera: The bladder, prostate, and seminal vesicles are normal as visualized. Skeletal structures: No lytic or blastic lesions are seen. IMPRESSION: 1. There are no acute infectious or inflammatory findings in the abdomen or pelvis. 2. Moderate constipation. 3. Additional findings as above. ACT 112: Negative or not required by law. Electronically signed by: Collin Sorto M.D. 02/06/2020 11:23 AM
[2020-02-06] MEDS: SODIUM CHLORIDE 0.9% 1000ML 1,000 ML IV SCH (11:29)
--- NOTE | 2020-02-06 12:52 | Hospitalist Progress Note ---
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 History of right 6th nerve palsy for about 3 weeks duration and right facial palsy as of yesterday 02/04/2020 Outpatient Lyme titer for Western blot IgM is positive 3 out of 3 and IgG 2 out of 10 Lumbar puncture on 02/04/2020 ordered by neurology revealed 222 to WBC, glucose 40, CSF/serum glucose ratio <0.4, protein >200 Has been started on intravenous ceftriaxone including intravenous ampicillin and vancomycin until CSF culture and sensitivity is back Appreciate neurology input and recommendation Will get ID recommendation Culture of the CSF fluid did not grow any organism and will discontinue intravenous vancomycin Remains stable clinically Right groin pain Local examination remains unremarkable No pain in hip joint CT scan of the abdomen and pelvis did not show any acute findings Could be secondary to part of polyneuropathy from Lyme disease Hemoglobin A1c pending to rule out any possibilities of diabetes (2) Candelario's palsy: (3) Sixth cranial nerve palsy: This is a 54-year-old male with significant past medical history of HLD, allergic rhinitis, hypertension, Gout who presents to ED secondary to referral by neurology due to abnormal lumbar puncture and acute lyme disease. Pt sx. started 3 weeks ago with bilateral diplopia. Seen and evaluated by ophthalmology. Had orbit MRI which was unremarkable. Had brain MRI which is unremarkable as well. Progressed yesterday to right-sided facial droop and diagnosed with Candelario's palsy. And neurologic work-up in ED yesterday was otherwise unremarkable. Outpatient Lyme titer IgM 3 out of 3 positive, IgG 2/10+, presumptive early Lyme's disease. Lumbar puncture today ordered by neurology revealed 222 to WBC, glucose 40, CSF/serum glucose ratio <0.4, protein >200 Pt does not meet SIRS/sepsis criteria per current CMS guidelines on admission. (4) Elevated blood pressure reading: Patient with elevated BP today Was seen in neurology clinic restarted him on lisinopril 5 mg daily, he has not yet started That probably the moving only and appears to be well controlled on no antihypertensive Likely elevated in setting of acute illness We will hold on initiating lisinopril -monitor BP (5) Hypercholesteremia: continue statin (6) Gout: continue allopurinol (7) DVT prophylaxis: SCD/TEDS Disposition: admit to PCU Follow up: PCP Dr. Chappell upon discharge Discussed with the in detail Admission and Anticipated Discharge Date Admission Date: February 04, 2020 Subjective 02/05/2020 The patient was seen and examined in medical floor He has been complaining of some back pain , headache and right groin pain Denies any other neurological symptoms Denies any fever and/or chills 02/06/2020 The patient was seen and examined in medical floor He has been complaining of right groin pain since yesterday Denies any other symptoms Review of Systems Review of Systems: All systems reviewed and are unremarkable except as noted below Eyes: + diplopia Has right 6th nerve palsy. Musculoskeletal: Right groin pain Neurologic: Right Candelario's palsy Physical Exam Physical Exam: Lying in bed comfortably Constitutional: well developed, well nourished and + ill appearing; no acute distress ENMT: external ear and nose normal, oropharynx normal Neck: trachea midline, no thyromegaly Respiratory: + respiratory distress; no labored breathing Auscultation: lungs clear to auscultation bilaterally Cardiovascular: Rate/Rhythm: regular rate and regular rhythm Heart Sounds: no murmur Gastrointestinal (Abdomen): Inspection/Auscultation: abdomen normal to inspection; abdomen not distended Percussion/Palpation: abdomen soft Musculoskeletal: Localized tenderness right mid groin, no evidence of hernia and no evidence of arthritis involving the hip joint Neurologic: moves all extremities; no focal motor deficits Speech / Cognition: normal speech Motor/Sensory: no tremor Psychiatric: A+Ox3, euthymic affect Lymphatic: no cervical or axillary lymphadenopathy Results & Data Results & Data ([facility]) Vital Signs (Past 12 Hours) Vital Signs Temp Pulse Resp BP Pulse Ox 02/06/20 08:45 36.8 C 73 17 135/88 97 Laboratory Results Short CBC 02/06/20 Range/Units 05:21 WBC 4.50 L (4.8-10.8) K/uL Hgb 13.0 L (14.0-18.0) g/dL Hct 39.6 L (42-52) % Plt Count 207 (130-400) K/uL BMP 02/06/20 05:21 Sodium 139 Potassium 4.4 D Chloride 103 Carbon Dioxide 32 BUN 12 Creatinine 0.83 Glucose 100 H Calcium 9.1 Liver Function 02/06/20 Range/Units 05:21 Total Bilirubin 0.3 (0.2-1) mg/dl AST 12 L (15-37) U/L ALT 17 (12-78) U/L Alkaline Phosphatase 42 L (45-117) U/L Albumin 3.3 L (3.4-5.0) gm/dl Medications Administered Current Inpatient Medications Acetaminophen (Acetaminophen 325 Mg Tab) 650 mg PO Q4H PRN PRN Reason: Pain or Fever Stop: 03/05/20 20:02 Last Admin: 02/06/20 07:49 Dose: 650 mg Documented by: Al Hydrox/Mg Hydrox/Simethicone (Aluminum/Magnesium Susp 30 Ml Udc) 15 ml PO Q4H PRN PRN Reason: Dyspepsia Stop: 03/05/20 20:02 Allopurinol (Allopurinol 100 Mg Tab) 200 mg PO HS DANIELLE Stop: 03/05/20 20:59 Last Admin: 02/05/20 19:59 Dose: 200 mg Documented by: Atorvastatin Calcium (Atorvastatin 20 Mg Tab) 20 mg PO QPM DANIELLE Stop: 03/05/20 20:59 Last Admin: 02/05/20 19:59 Dose: 20 mg Documented by: Docusate Sodium (Docusate Sodium 100 Mg Cap) 100 mg PO BID DANIELLE Stop: 03/06/20 20:59 Last Admin: 02/06/20 09:26 Dose: 100 mg Documented by: Fluticasone Propionate (Fluticasone Propionate Na Spr 16 Gm Btl) 2 sprays NA QPM DANIELLE Stop: 03/05/20 20:59 Last Admin: 02/05/20 19:59 Dose: 2 sprays Documented by: Gabapentin (Gabapentin 300 Mg Cap) 300 mg PO BID DANIELLE Stop: 03/05/20 20:59 Last Admin: 02/06/20 09:26 Dose: 300 mg Documented by: Ceftriaxone Sodium 2,000 mg/ (Dextrose) 50 mls @ 100 mls/hr IV Q12H DANIELLE; Protocol Stop: 02/14/20 18:06 Last Infusion: 02/06/20 05:10 Dose: Infused Documented by: Ampicillin Sodium 2,000 mg/ (Sodium Chloride) 100 mls @ 200 mls/hr IV Q4H DANIELLE Stop: 02/14/20 18:14 Last Infusion: 02/06/20 12:00 Dose: Infused Documented by: Sodium Chloride (Nss 1000ml) 1,000 mls @ 75 mls/hr IV .[id number] DANIELLE Stop: 03/05/20 20:02 Last Infusion: 02/06/20 12:00 Dose: 75 mls/hr Documented by: Magnesium Hydroxide (Magnesium Hydroxide Susp 30 Ml Udc) 30 ml PO Q12H PRN PRN Reason: Constipation Stop: 03/05/20 20:02 Last Admin: 02/05/20 10:49 Dose: 30 ml Documented by: Montelukast Sodium (Montelukast Sodium 10 Mg Tablet) 10 mg PO HS DANIELLE Stop: 03/05/20 20:59 Last Admin: 02/05/20 19:59 Dose: 10 mg Documented by: Morphine Sulfate (Morphine Sulfate 4 Mg/Ml 1 Ml Carp\Vial) 4 mg IV Q4H PRN PRN Reason: severe pain Stop: 02/18/20 20:02 Last Admin: 02/06/20 05:36 Dose: 4 mg Documented by: Ondansetron HCl (Ondansetron Inj 2 Mg/Ml 2 Ml Vial) 4 mg IV Q6H PRN PRN Reason: Nausea Stop: 03/05/20 20:02 Sennosides (Senna 8.6 Mg Tab) 17.2 mg PO QPM DANIELLE Stop: 03/06/20 20:59 Last Admin: 02/05/20 19:59 Dose: 17.2 mg Documented by: (1) Sixth cranial nerve palsy Laterality: right Qualified Code(s): H49.21 - Sixth [abducent] nerve palsy, right eye
[2020-02-06] MEDS ORDERED: VANCOMYCIN HCL 1,250 MG in SODIUM CHLORIDE 0.9% 250 ML IV SCH (14:00)
[2020-02-06] MEDS: FLUTICASONE PROPIONATE NA SPR 16 GM BTL SCH (20:46)
[2020-02-06] MEDS: SENNA 8.6 MG TAB PO SCH (20:46)
[2020-02-06] MEDS: ATORVASTATIN 20 MG TAB PO SCH (20:46)
[2020-02-06] MEDS: allopurinoL 100 MG TAB PO SCH (20:46)
[2020-02-06] MEDS: MONTELUKAST SODIUM 10 MG TABLET PO SCH (20:46)
[2020-02-07] MEDS: SODIUM CHLORIDE 0.9% 1000ML 1,000 ML IV SCH ×2 (02:48→16:34)
[2020-02-07] MEDS: AMPICILLIN 2,000 MG in SODIUM CHLOR 0.9% AD-VAN 100 ML IV SCH ×3 (02:48→11:23)
[2020-02-07] MEDS: cefTRIAXone SODIUM 2,000 MG in DEXTROSE 5% 50 ML IV SCH ×2 (05:32→16:34)
[2020-02-07 06:51] LABS: Estimated Average Glucose 103 mg/dl; Hemoglobin A1C 5.2 % (4.5-5.6)
[2020-02-07] MEDS: ACETAMINOPHEN 325 MG TAB PO PRN ×2 (07:55→20:06)
[2020-02-07] MEDS: GABAPENTIN 300 MG CAP PO SCH ×2 (07:56→11:32)
[2020-02-07] MEDS: DOCUSATE SODIUM 100 MG CAP PO SCH ×2 (07:56→17:36)
[2020-02-07 08:36] LABS: Basophils # (auto) 0.02 K/uL (0-0.2); Basophils % (auto) 0.4 %; Eosinophils # (auto) 0.22 K/uL (0-0.5); Eosinophils % (auto) 4.5 %; Hematocrit (blood only) 42.1 % (42-52); Immature Granulocytes # (auto) 0.02 K/uL (0.00-0.02); Immature Granulocytes % (auto) 0.4 %; Lymphocytes % (auto) 37.1 %; Mean Corpuscular Hemoglobin 31.7 pg (25-34); Mean Corpuscular Hgb Conc 33.3 g/dL (32-36); Mean Corpuscular Volume 95.5 fL (80-100); Mean Platelet Volume 10.9 fL (7.4-10.4); Monocytes # (auto) 0.64 K/uL (0.11-0.59); Monocytes % (auto) 13.2 %; Neutrophils # (auto) 2.15 K/uL (1.4-6.5); Neutrophils % (auto) 44.4 %; Platelet Count 215 K/uL (130-400); RDW Coefficient of Variation 12.4 % (11.5-14.5); Red Blood Count 4.41 M/uL (4.7-6.1); White Blood Count 4.85 K/uL (4.8-10.8)
[2020-02-07 09:17] LABS: BUN Creatinine Ratio 17.7 (10-20); Calcium 9.4 mg/dl (8.5-10.1); Creatinine Clr Calc Pharmacy 96.1 ml/min; Est GFR (African American) 104.2; Est GFR (Non-African American) 89.9; Potassium 4.6 mmol/L (3.5-5.1)
--- NOTE | 2020-02-07 09:36 | Neurology Progress Note ---
Date of Service February 07, 2020 Assessment & Plan (1) Acute Lyme disease: (2) Sixth cranial nerve palsy: (3) Candelario's palsy: (4) Acute postinfective radiculoneuropathy: The patient has a 1 month history of double vision, diffuse arthralgias, low back pain with radicular pain down the backs of the legs bilaterally, nonspecific bifrontal headache, as well as a recent right facial droop. On examination, the patient has the right 6th nerve palsy, right peripheral 7th nerve palsy, and arthralgias, without any other focal nervous system deficits. His entire picture is consistent with central nervous system Lyme disease. He has lymphocytic meningoradiculitis (Bannwarth syndrome), as noted by an elevated white count with 99% monos and markedly elevated protein. He has multiple cranial nerve deficits, notably a right 6th nerve palsy and right peripheral 7th (Candelario's palsy ). Overall he is clinically stable and starting to make some improvements. Recommendations: 1. continue Rocephin, 2 g/day, for 21-28 days total (I, personally, do not believe 2 weeks is enough for central nervous system Lyme disease). 2. Patient will need a PICC line (or other long-term IV) placed to continue treatment at home. 3. Since CSF bacteria cultures negative, discontinue ampicillin, and stay on Rocephin alone. 4. Increase gabapentin to 300 mg in the morning, 300 mg in the evening and 600 mg at night. Most of his pain symptoms are at night. 5. patient may benefit from steroids for his joint and back pain ( for example, Medrol Dosepak). 6. Follow-up, 1-[address] Guo, as an outpatient. otherwise, I have no further neurologic testing or treatment recommendations to make at this time. Overall, I spent a total of 70 minutes with this case including review of records, review of MRI films, direct evaluation the patient bedside, and discussing the case with the patient at bedside, RN at bedside, and Dr. Garcia, including differential diagnosis and treatment options. Admission and Anticipated Discharge Date Admission Date: February 04, 2020 Subjective the patient continues to have joint pain in the right shoulder, left elbow, right groin, and low back with radiation down the back of both legs. the narcotic medication for pain does help but he is not sure the gabapentin , 300 mg twice daily, helps. Patient believes that the double vision and right facial weakness may be a little bit better now compared to admission. He has a very dull intermittent frontal headache bilaterally. He has no confusion or dizziness. Blood pressure is 121/78 and he is afebrile. CBC shows a normal white count and no anemia this morning. Chem profile was unremarkable. Cryptococcal antigen was unremarkable. cerebrospinal fluid Gram stain was unremarkable and there is no growth and CSF cultures ( final). CT scan of the abdomen and pelvis was largely unremarkable. Results & Data ([facility]) Vital Signs (Past 12 Hours) Vital Signs Temp Pulse Resp BP Pulse Ox 02/07/20 07:06 36.8 C 71 18 121/78 98 02/06/20 23:00 36.7 C 78 18 142/87 H 95 Exam (Neuro) Physical Exam: The patient is awake, alert, and attentive, with normal speech and communication. The patient is fully oriented, has a normal mood and affect, and has intact long and short term memory.He is pleasant and cooperative. Patient has the inability to move his right eye all the way to the right with right gaze. He can pass midline some. This is consistent with a right 6th nerve palsy. Rest of the extraocular eye muscles were intact without nystagmus. He has a facial droop at the corner of the mouth on the right. It does move a little with voluntary smile. He is weak in the right forehead muscle movement as well as eye closure on the right. Tongue is midline palate moves well. Facial sensation is normal bilaterally. Hearing is bilaterally. Neck is supple without discomfort. Gait is narrow based and stable with good turns. Coordination of the arms is normal, without tremor or ataxia bilaterally. Motor strength is 5/5 in all major muscle groups of the arms and legs bilaterally, both proximally and distally. Muscle tone is normal in the limbs, without rigidity or spasticity. Reflexes are 2/4 in all 4 limbs both proximally and distally. Sensation seems intact in all 4 limbs. Toes are downgoing to plantar stimulation bilaterally. PG Care Time/CCT Total # of Minutes Spent Total Time Spent with Patient: Total time spent is greater than 50% in coordination of care (as documented) at patient's floor/unit and/or counseling patient: Coding Level of Care Code 95028 Subseq Hosp Care Lvl 3 Diagnoses Acute Lyme disease A69.20 Sixth cranial nerve palsy H49.21 Laterality: right Candelario's palsy G51.0 Acute postinfective radiculoneuropathy G61.0 Time Spent (min) 70 Comment Add [id number] to the 50428 (1) Sixth cranial nerve palsy Laterality: right Qualified Code(s): H49.21 - Sixth [abducent] nerve palsy, right eye
[2020-02-07] MEDS ORDERED: methylPREDNISolone 4 MG TAB, 6 DAY TAPER PO SCH (10:00)
[2020-02-07] MEDS: MoRPHine SULFATE 4 MG/ML 1 ML CARP\\VIAL IV PRN ×2 (11:32→21:51)
[2020-02-07] MEDS: methylPREDNISolone 4 MG TAB PO SCH ×4 (11:32→20:05)
[2020-02-07] MEDS ORDERED: VANCOMYCIN TROUGH ONE (13:30)
--- NOTE | 2020-02-07 15:40 | Hospitalist Progress Note ---
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 History of right 6th nerve palsy for about 3 weeks duration and right facial palsy as of yesterday 02/04/2020 Outpatient Lyme titer for Western blot IgM is positive 3 out of 3 and IgG 2 out of 10 Lumbar puncture on 02/04/2020 ordered by neurology revealed 222 to WBC, glucose 40, CSF/serum glucose ratio <0.4, protein >200 Has been started on intravenous ceftriaxone including intravenous ampicillin and vancomycin until CSF culture and sensitivity is back Appreciate neurology input and recommendation Culture of the CSF fluid did not grow any organism and will discontinue intravenous vancomycin Remains stable clinically Appreciate ID input and recommendation-we will continue current intravenous ceftriaxone and changed to oral doxycycline on discharge for a total of 14 days Oral doxycycline is recommended even when involving [employer]-discussed with the patient in detail We will get PT and OT evaluation and possible discharge tomorrow Right groin pain Local examination remains unremarkable No pain in hip joint CT scan of the abdomen and pelvis did not show any acute findings Could be secondary to part of polyneuropathy from Lyme disease Hemoglobin A1c pending to rule out any possibilities of diabetes We will give gabapentin 300 mg in the morning, 300 at noon and 600 at night as per recommendation from neurologist Will give small dose of Medrol Dosepak for improvement of pain in multiple nerves and may be joint (2) Candelario's palsy: (3) Sixth cranial nerve palsy: This is a 54-year-old male with significant past medical history of HLD, allergic rhinitis, hypertension, Gout who presents to ED secondary to referral by neurology due to abnormal lumbar puncture and acute lyme disease. Pt sx. started 3 weeks ago with bilateral diplopia. Seen and evaluated by ophthalmology. Had orbit MRI which was unremarkable. Had brain MRI which is unremarkable as well. Progressed yesterday to right-sided facial droop and diagnosed with Candelario's palsy. And neurologic work-up in ED yesterday was otherwise unremarkable. Outpatient Lyme titer IgM 3 out of 3 positive, IgG 2/10+, presumptive early Lyme's disease. Lumbar puncture today ordered by neurology revealed 222 to WBC, glucose 40, CSF/serum glucose ratio <0.4, protein >200 Pt does not meet SIRS/sepsis criteria per current CMS guidelines on admission. (4) Elevated blood pressure reading: Patient with elevated BP today Was seen in neurology clinic restarted him on lisinopril 5 mg daily, he has not yet started That probably the moving only and appears to be well controlled on no antihypertensive Likely elevated in setting of acute illness We will hold on initiating lisinopril -monitor BP Blood pressure is controlled (5) Hypercholesteremia: continue statin (6) Gout: continue allopurinol (7) DVT prophylaxis: SCD/TEDS Disposition: admit to PCU Follow up: PCP Dr. Chappell upon discharge Discussed with the in detail Admission and Anticipated Discharge Date Admission Date: February 04, 2020 Subjective 02/05/2020 The patient was seen and examined in medical floor He has been complaining of some back pain , headache and right groin pain Denies any other neurological symptoms Denies any fever and/or chills 02/06/2020 The patient was seen and examined in medical floor He has been complaining of right groin pain since yesterday Denies any other symptoms 02/07/2020 The patient was seen and examined in medical floor He complains to have groin pain with movement He is eye symptoms and Candelario's palsy have been improving Denies any fever and/or chills Review of Systems Review of Systems: All systems reviewed and are unremarkable except as noted below Eyes: + diplopia Has right 6th nerve palsy. Musculoskeletal: Right groin pain Neurologic: Right Candelario's palsy Physical Exam Physical Exam: Lying in bed comfortably Constitutional: well developed, well nourished and + ill appearing; no acute distress ENMT: external ear and nose normal, oropharynx normal Neck: trachea midline, no thyromegaly Respiratory: + respiratory distress; no labored breathing Auscultation: lungs clear to auscultation bilaterally Cardiovascular: Rate/Rhythm: regular rate and regular rhythm Heart Sounds: no murmur Gastrointestinal (Abdomen): Inspection/Auscultation: abdomen normal to inspection; abdomen not distended Percussion/Palpation: abdomen soft Musculoskeletal: No acute arthritis in any joint Neurologic: moves all extremities; no focal motor deficits Speech / Cognition: normal speech Motor/Sensory: no tremor Psychiatric: A+Ox3, euthymic affect Lymphatic: no cervical or axillary lymphadenopathy Results & Data Results & Data ([facility]) Vital Signs (Past 12 Hours) Vital Signs Temp Pulse Resp BP Pulse Ox 02/07/20 15:24 36.5 C 76 16 125/75 95 02/07/20 07:06 36.8 C 71 18 121/78 98 Laboratory Results Short CBC 02/07/20 Range/Units 07:21 WBC 4.85 (4.8-10.8) K/uL Hgb 14.0 (14.0-18.0) g/dL Hct 42.1 (42-52) % Plt Count 215 (130-400) K/uL BMP 02/07/20 07:21 Sodium 135 L Potassium 4.6 Chloride 106 Carbon Dioxide 24 BUN 17 Creatinine 0.96 Glucose 83 Calcium 9.4 Medications Administered Current Inpatient Medications Acetaminophen (Acetaminophen 325 Mg Tab) 650 mg PO Q4H PRN PRN Reason: Pain or Fever Stop: 03/05/20 20:02 Last Admin: 02/07/20 07:55 Dose: 650 mg Documented by: Al Hydrox/Mg Hydrox/Simethicone (Aluminum/Magnesium Susp 30 Ml Udc) 15 ml PO Q4H PRN PRN Reason: Dyspepsia Stop: 03/05/20 20:02 Allopurinol (Allopurinol 100 Mg Tab) 200 mg PO HS DANIELLE Stop: 03/05/20 20:59 Last Admin: 02/06/20 20:46 Dose: 200 mg Documented by: Atorvastatin Calcium (Atorvastatin 20 Mg Tab) 20 mg PO QPM DANIELLE Stop: 03/05/20 20:59 Last Admin: 02/06/20 20:46 Dose: 20 mg Documented by: Docusate Sodium (Docusate Sodium 100 Mg Cap) 100 mg PO BID DANIELLE Stop: 03/06/20 20:59 Last Admin: 02/07/20 07:56 Dose: 100 mg Documented by: Fluticasone Propionate (Fluticasone Propionate Na Spr 16 Gm Btl) 2 sprays NA QPM DANIELLE Stop: 03/05/20 20:59 Last Admin: 02/06/20 20:46 Dose: 2 sprays Documented by: Gabapentin (Gabapentin 600 Mg Tab) 600 mg PO HS DANIELLE Stop: 03/08/20 20:59 Gabapentin (Gabapentin 300 Mg Cap) 300 mg PO DAILY@0900,1200 DANIELLE Stop: 03/08/20 11:59 Last Admin: 02/07/20 11:32 Dose: 300 mg Documented by: Ceftriaxone Sodium 2,000 mg/ (Dextrose) 50 mls @ 100 mls/hr IV Q12H DANIELLE; Protocol Stop: 02/14/20 18:06 Last Infusion: 02/07/20 06:09 Dose: Infused Documented by: Sodium Chloride (Nss 1000ml) 1,000 mls @ 75 mls/hr IV .[id number] DANIELLE Stop: 03/05/20 20:02 Last Infusion: 02/07/20 06:44 Dose: 75 mls/hr Documented by: Magnesium Hydroxide (Magnesium Hydroxide Susp 30 Ml Udc) 30 ml PO Q12H PRN PRN Reason: Constipation Stop: 03/05/20 20:02 Last Admin: 02/05/20 10:49 Dose: 30 ml Documented by: Methylprednisolone (Methylprednisolone 4 Mg Tab) 8 mg PO 1030,2100 [facility] Stop: 02/07/20 21:01 Last Admin: 02/07/20 11:32 Dose: 8 mg Documented by: Methylprednisolone (Methylprednisolone 4 Mg Tab) 4 mg PO 1300,1800 [facility] Stop: 02/07/20 18:01 Last Admin: 02/07/20 13:15 Dose: 4 mg Documented by: Methylprednisolone (Methylprednisolone 4 Mg Tab) 4 mg PO 0700,1300,1800 [facility] Stop: 02/08/20 18:01 Methylprednisolone (Methylprednisolone 4 Mg Tab) 8 mg PO HS [facility] Stop: 02/08/20 21:01 Methylprednisolone (Methylprednisolone 4 Mg Tab) 4 mg PO 0700,1300,1800,2100 [facility] Stop: 02/09/20 21:01 Methylprednisolone (Methylprednisolone 4 Mg Tab) 4 mg PO 0700,1300,2100 [facility] Stop: 02/10/20 21:01 Methylprednisolone (Methylprednisolone 4 Mg Tab) 4 mg PO 0700,2100 [facility] Stop: 02/11/20 21:01 Methylprednisolone (Methylprednisolone 4 Mg Tab) 4 mg PO 0700 [facility] Stop: 02/12/20 07:01 Montelukast Sodium (Montelukast Sodium 10 Mg Tablet) 10 mg PO HS [facility] Stop: 03/05/20 20:59 Last Admin: 02/06/20 20:46 Dose: 10 mg Documented by: Morphine Sulfate (Morphine Sulfate 4 Mg/Ml 1 Ml Carp\Vial) 4 mg IV Q4H PRN PRN Reason: severe pain Stop: 02/18/20 20:02 Last Admin: 02/07/20 11:32 Dose: 4 mg Documented by: Ondansetron HCl (Ondansetron Inj 2 Mg/Ml 2 Ml Vial) 4 mg IV Q6H PRN PRN Reason: Nausea Stop: 03/05/20 20:02 Sennosides (Senna 8.6 Mg Tab) 17.2 mg PO QPM DANIELLE Stop: 03/06/20 20:59 Last Admin: 02/06/20 20:46 Dose: 17.2 mg Documented by: (1) Sixth cranial nerve palsy Laterality: right Qualified Code(s): H49.21 - Sixth [abducent] nerve palsy, right eye
[2020-02-07] MEDS: SENNA 8.6 MG TAB PO SCH (17:36)
[2020-02-07] MEDS: MAGNESIUM HYDROXIDE SUSP 30 ML UDC PO PRN (17:37)
[2020-02-07] MEDS: FLUTICASONE PROPIONATE NA SPR 16 GM BTL SCH (20:05)
[2020-02-07] MEDS: ATORVASTATIN 20 MG TAB PO SCH (20:05)
[2020-02-07] MEDS: allopurinoL 100 MG TAB PO SCH (20:06)
[2020-02-07] MEDS: MONTELUKAST SODIUM 10 MG TABLET PO SCH (20:06)
[2020-02-07] MEDS ORDERED: GABAPENTIN 600 MG TAB PO SCH (21:00)
[2020-02-08] MEDS: cefTRIAXone SODIUM 2,000 MG in DEXTROSE 5% 50 ML IV SCH (05:14)
[2020-02-08] MEDS: SODIUM CHLORIDE 0.9% 1000ML 1,000 ML IV SCH (05:58)
[2020-02-08] MEDS: methylPREDNISolone 4 MG TAB PO SCH ×2 (05:58→13:24)
[2020-02-08 07:26] LABS: Creatinine Clr Calc Pharmacy 101.3 ml/min; Est GFR (African American) 111.1; Est GFR (Non-African American) 95.9
[2020-02-08] MEDS: DOCUSATE SODIUM 100 MG CAP PO SCH (09:06)
[2020-02-08] MEDS: GABAPENTIN 300 MG CAP PO SCH ×2 (09:06→13:25)
--- NOTE | 2020-02-08 18:40 | Discharge Summary ---
Date of Service February 08, 2020 Admission HPI Per Admitting Provider This is a 54-year-old male with significant past medical history of HLD, allergic rhinitis, hypertension, Gout who presents to ED secondary to referral by neurology due to abnormal lumbar puncture. Of significance patient symptoms started approximately 3 weeks ago. He developed bilateral diplopia. "I was put through the ringer and even myasthenia gravis was ruled out." He was seen and evaluated by ophthalmology who diagnosed him with a cranial nerve palsy. He was diagnosed by outpatient lab with positive lyme. His symptoms continued and yesterday he noted a right-sided facial droop when he was performing a Zoom meeting. He also had concern for tingling to right upper extremity and was seen and evaluated in ED. He underwent stroke work-up including CT head, CTA head and neck as well as MRI. MRI reviewed a few punctuate white matter lesions unchanged from prior exam likely reflecting small vessel disease or sequela from migraines. CTA head and neck were unremarkable. He was started on oral d oxycycline due to concern for Lyme's disease. Case was discussed with outpatient neurology who also recommended initiation of doxycycline. He was seen in follow-up today by Dr. Guo. Lumbar puncture was performed which revealed xanthochromic clear colorless fluid with 222 WBC, elevated protein at 219.4. He was referred to ED for meningitis. He was started on 2 g IV Rocephin. Currently he complains of continued bilateral diplopia, right-sided facial droop, right eye patch in place, dull bandlike headache that is constant, neck pain that is more severe at night, and back pain. Overall decreased appetite and 5 to 10 pound weight loss over the past 3 weeks. He denies fever, chills, sweats, lightheadedness, dizziness, loss of vision, change in hearing, dysphagia, excessive drooling, chest pain, shortness of breath, cough, nausea, vomiting, abdominal pain, change in bowel or urinary habits. He has been using lidocaine patches at night, "all over my body." He denies rash or arthralgias. No known sick contacts. In ED lab work notable for WBC 3.8, H&H 13.8 and 40.4, platelet 223, BUN 15, creatinine 0.84, glucose 124. He remained hemodynamically stable. He received 2 g IV Rocephin in ED. Admission Exam Per Admitting Provider Physical Exam: Constitutional: WD/WN, M, vitals as above, NAD, sitting up in bed, pleasant, conversing easily Head: Normocephalic, Atraumatic Eyes: PERRL, conjunctivae normal, anicteric sclerae ENMT: external ear and nose normal, oropharynx normal Neck: trachea midline, no thyromegaly normal visual inspection Respiratory: normal respiratory effort, lungs clear to auscultation, no wheeze, rales, rhonchi. Normal insp/exp effort, no accessory muscle use Cardiovascular: RRR, no murmur, no edema Vessels: no JVD or carotid bruit Chest: normal inspection of chest Abdomen: normal bowel sounds, soft, nontender, no hepatosplenomegaly Musculoskeletal: no cyanosis or clubbing, extremities motor strength 5/5 Skin: no rashes, warm and dry normal turgor Neurologic: PERRL, EOMI, accommodation nl, R facial droop, Cran nerve 6 palsy, no dysarthria, moves all extremities, Psychiatric: A+Ox3, euthymic affect Lymphatic: no cervical or axillary lymphadenopathy : deferred Principal Diagnosis Acute Lyme meningitis, lymphocytic meningeal radiculitis, 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, polyneuropathy could be secondary to Lyme disease Discharge Exam Constitutional well developed, well nourished and + ill appearing; no acute distress ENMT external ear and nose normal, oropharynx normal Neck trachea midline, no thyromegaly Respiratory + respiratory distress; no labored breathing Auscultation: lungs clear to auscultation bilaterally Cardiovascular Rate/Rhythm: regular rate and regular rhythm Heart Sounds: no murmur Gastrointestinal (Abdomen) Inspection/Auscultation: abdomen normal to inspection; abdomen not distended Percussion/Palpation: abdomen soft Neurologic moves all extremities; no focal motor deficits Speech / Cognition: normal speech Motor/Sensory: no tremor Psychiatric A+Ox3, euthymic affect Lymphatic no cervical or axillary lymphadenopathy Discharge Data Allergies Allergy/AdvReac Type Severity Reaction Status Date / Time No Known Allergies Allergy Verified 02/04/20 17:28 Consultations 02/04/20 16:39 ED Decision to Admit Stat 02/04/20 19:01 Consult Neurology Routine 02/04/20 20:03 Consult Infectious Diseases Routine 02/04/20 21:33 Consult Health Information Management Stat Ordered Studies 02/06/20 10:40 CT abd pelvis wo con Routine Hospital Course (1) Acute Lyme disease: 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 History of right 6th nerve palsy for about 3 weeks duration and right facial pa lsy as of yesterday 02/04/2020 Outpatient Lyme titer for Western blot IgM is positive 3 out of 3 and IgG 2 out of 10 Lumbar puncture on 02/04/2020 ordered by neurology revealed 222 to WBC, glucose 40, CSF/serum glucose ratio <0.4, protein >200 Has been started on intravenous ceftriaxone including intravenous ampicillin and vancomycin until CSF culture and sensitivity is back Appreciate neurology input and recommendation Culture of the CSF fluid did not grow any organism and will discontinue intravenous vancomycin Remains stable clinically Appreciate ID input and recommendation-we will continue current intravenous ceftriaxone and changed to oral doxycycline on discharge for a total of 14 days Oral doxycycline is recommended even when involving [employer]ATOR-discussed with the patient in detail We will get PT and OT evaluation and possible discharge tomorrow Right groin pain Local examination remains unremarkable No pain in hip joint CT scan of the abdomen and pelvis did not show any acute findings Could be secondary to part of polyneuropathy from Lyme disease Hemoglobin A1c pending to rule out any possibilities of diabetes We will give gabapentin 300 mg in the morning, 300 at noon and 600 at night as per recommendation from neurologist Will give small dose of Medrol Dosepak for improvement of pain in multiple nerves and may be joint (2) Candelario's palsy: (3) Sixth cranial nerve palsy: This is a 54-year-old male with significant past medical history of HLD, allergic rhinitis, hypertension, Gout who presents to ED secondary to referral by neurology due to abnormal lumbar puncture and acute lyme disease. Pt sx. started 3 weeks ago with bilateral diplopia. Seen and evaluated by ophthalmology. Had orbit MRI which was unremarkable. Had brain MRI which is unremarkable as well. Progressed yesterday to right-sided facial droop and diagnosed with Candelario's palsy. And neurologic work-up in ED yesterday was otherwise unremarkable. Outpatient Lyme titer IgM 3 out of 3 positive, IgG 2/10+, presumptive early Lyme's disease. Lumbar puncture today ordered by neurology revealed 222 to WBC, glucose 40, CSF/serum glucose ratio <0.4, protein >200 Pt does not meet SIRS/sepsis criteria per current CMS guidelines on admission. (4) Elevated blood pressure reading: Patient with elevated BP today Was seen in neurology clinic restarted him on lisinopril 5 mg daily, he has not yet started That probably the moving only and appears to be well controlled on no antihypertensive Likely elevated in setting of acute illness We will hold on initiating lisinopril -monitor BP Blood pressure is controlled (5) Hypercholesteremia: continue statin (6) Gout: continue allopurinol (7) DVT prophylaxis: SCD/TEDS Disposition: admit to PCU Follow up: PCP Dr. 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, polyneuropathy could be secondary to Lyme disease Condition on Discharge: Good Activity: Resume your previous activity Non-emergency contact: Primary Care Provider Call non-emergency contact if: you have any medication questions and your symptoms worsen Follow-up/Referrals: Elle Koehler MD [Primary Care Provider] - (Date & Time 02/14/2020 10:20 AM Provider Elle Chappell MD Department General Internal Medicine [facility] ) Diet: Heart Healthy Addtl Attending Provider Instructions: Please take precaution to avoid falls Is finished a course of antibiotic Please make an appointment with your PCP within 7 days and neurologist within 1 to 2 weeks Pending Studies at Discharge: No Stand-Alone Forms: My [facility] Nifty After [employer], Smoking Cessation Medications and DC Order Prescriptions: New gabapentin 600 mg Tablet 600 mg PO HS 30 Days Qty: 30 RF: 0 gabapentin 300 mg Capsule 300 mg PO DAILY@0900,1200 30 Days Qty: 60 RF: 0 doxycycline hyclate 100 mg capsule 100 mg PO BID 10 Days Qty: 20 RF: 0 methylprednisolone [Medrol] 4 mg tablet 4 mg PO UD Qty: 10 RF: 0 Lactinex 1 million cell tablet,chewable 1 tab PO TID Qty: 30 RF: 0 oxycodone-acetaminophen [Percocet] 5-325 mg tablet 1 tab PO Q6H PRN (Reason: pain) Qty: 20 RF: 0 Continued lisinopril 5 mg tablet 5 mg PO DAILY Qty: 30 RF: 2 atorvastatin 20 mg tablet 20 mg PO QPM RF: 0 allopurinol 100 mg tablet 200 mg PO HS RF: 0 montelukast 10 mg tablet 10 mg PO HS RF: 0 fluticasone propionate 50 mcg/actuation spray,suspension 2 spray INTRANASAL QPM RF: 0 Discontinued gabapentin 300 mg capsule 300 mg PO BID Qty: 60 RF: 2 doxycycline hyclate 100 mg capsule 100 mg PO DAILY RF: 0 Discharge Orders: Discharge Order (Routine); Ordered 02/08/20 Ordered By: Ximena Negron/Other Patient Handouts: Gabapentin capsules or tablets, Doxycycline tablets or capsules Admission Data Admit Date/Time: 02/04/20 17:39 Attending Provider: Ximena Garcia Admit Provider: Rudi Fiore Primary Care Provider: Elle Koehler Other Providers: Rudi Fiore ; Yonis Leigh ; [employer]ak Dumas ; Dilan Angulo ; Grayson Gandhi I. ; Carrillo Vera II ; Kia Schumacher ; Zach Clemente Other Interventions: Discharge Summary Assessment (RN) Last Done: 02/08/20 14:59
[2020-02-08] MEDS ORDERED: methylPREDNISolone 4 MG TAB PO SCH (21:00)
[2020-02-09] MEDS ORDERED: methylPREDNISolone 4 MG TAB PO SCH (07:00)
[2020-02-10] MEDS ORDERED: methylPREDNISolone 4 MG TAB PO SCH (07:00)
[2020-02-11] MEDS ORDERED: methylPREDNISolone 4 MG TAB PO SCH (07:00)
[2020-02-12] MEDS ORDERED: methylPREDNISolone 4 MG TAB PO SCH (07:00)
== END 2020-02-08 17:09 | disposition home or self-care (01) | DRG 869 ==
LOC: ED 15:55 → 2S 17:39 → SUATTDRO 17:39 → 2S 18:59 → 3N 22:33